=== PATIENT | female | born 2000 | race Caucasian/White ===

== ENCOUNTER 2024-01-15 17:51 | Emergency (ER) | payer OTHER, SELFPAY ==
[2024-01-15 18:02] VITALS: BP 128/75; PULSE 69; TEMP 37.5; O2SAT 96; BMI 21.0
[2024-01-15 19:11] VITALS: BP 125/77; PULSE 64; TEMP 36.8; O2SAT 98
--- NOTE | 2024-01-15 19:29 | ED.GENADUL1 ---
HPI HPI - General Adult General Chief complaint: Headache Stated complaint: HEADACHE, ABDOMINAL PAIN Time Seen by Provider: 01/15/24 19:17 Source: patient Mode of arrival: walk-in History of Present Illness HPI narrative: This 23-year-old female with a history of migraine headaches presents for evaluation of a migraine headache for the past 2 to 3 days associated with nausea and photophobia. She states she has taken Tylenol, ibuprofen and Excedrin Migraine without relief. She is not on any migraine prophylaxis. Her last migraine before this one was last week. She has a global throbbing headache. She denies any thunderclap presentation of the headache. She does not have any fever skin rash or neck pain. She also complains of upper abdominal pain that she states comes and goes. She is not currently experiencing it. She states that happens mostly when she is lying down or when she wakes up in the morning. She has not had any vomiting or diarrhea. She also states that time she has pain underneath her right shoulder blade. She has no chest pain or dizziness. She has no lower extremity pain or swelling. She doubts the possibility of but is not sure. Related Data Allergies Allergy/AdvReac Type Severity Reaction Status Date / Time No Known Drug Allergies Allergy Verified 01/15/24 18:05 Opioid HPI Opioid Management Most Recent Opioid Data: Last JUN Pain Assessment 01/15/24 19:51 Review of Systems ROS Status of ROS 10 or more systems reviewed and unremarkable except as noted in history and below PFSH PFSH Social History Little interest or pleasure in doing things: not at all Feeling down, depressed, or hopeless: not at all Exam Narrative Exam Narrative: Vital signs and Nursing Notes reviewed: Patient is afebrile with a normal pulse, normal blood pressure, she is not hypoxic with pulse ox of 98% on room air General: Awake, alert, oriented, no acute distress, lying comfortably on the stretcher HEENT: Normocephalic atraumatic, mucous membranes are moist and pink, eyes are clear, normal conjunctiva, vision is grossly intact, posterior pharynx is normal in appearance. Neck: Supple, no meningeal signs Chest: Lungs are clear to auscultation with good air entry, there is no wheezing rhonchi or rales appreciated no accessory muscle use, patient is speaking in complete sentences-no chest wall tenderness to palpation CVS: Regular rate and rhythm S1-S2, no murmurs rubs or gallops, pulses are brisk and equal bilaterally ABD: Soft, nondistended, nontender, no rebound guarding or rigidity, bowel sounds are normal, no pulsatile masses appreciated, no reproducible tenderness in the abdomen Extremities: Moving all extremities, no lower extremity tenderness or swelling noted, negative Homans' sign, pulses are brisk and equal bilaterally Skin: Normal in appearance without rash,pallor, petechiae or purpura Neuro: No focal deficits Constitutional Vital Signs, click to edit/add: Last Vital Signs Temp 98.2 F 01/15/24 19:11 Pulse 64 01/15/24 19:11 Resp 16 01/15/24 19:11 BP 125/77 01/15/24 19:11 Pulse Ox 98 01/15/24 19:11 O2 Del Method Room Air 01/15/24 19:11 Course Vital Signs Vital signs: Vital Signs Temperature 99.5 F 01/15/24 18:02 Pulse Rate 69 01/15/24 18:02 Respiratory Rate 18 01/15/24 18:02 Blood Pressure 128/75 01/15/24 18:02 Pulse Oximetry 96 01/15/24 18:02 Oxygen Delivery Method Room Air 01/15/24 18:02 Temperature 98.2 F 01/15/24 19:11 Pulse Rate 64 01/15/24 19:11 Respiratory Rate 16 01/15/24 19:11 Blood Pressure 125/77 01/15/24 19:11 Pulse Oximetry 98 01/15/24 19:11 Oxygen Delivery Method Room Air 01/15/24 19:11 Medical Decision Making MDM Narrative Medical decision making narrative: This 23-year-old female with a history of migraine headaches presents for evaluation of a migraine headache upper abdominal pain and pain underneath her right shoulder blade for the past several days. She has not had a fever. This is a typical migraine for her associated with nausea but no vomiting. Her vital signs and physical exam were benign. She stated to me that she had taken Tylenol, ibuprofen and Excedrin Migraine for her migraine without relief. An IV was placed and she was medicated with IV fluids, Reglan, Benadryl and Toradol. Routine labs are reviewed. She has a normal white count and hemoglobin. Her urine is negative for infection, test was negative. Electrolytes, liver function tests and d dimer are normal. On reevaluation she had fallen asleep and is easily arousable and states she is feeling better. She will be discharged home with a prescription for Reglan, protonix and ibuprofen with referral to outpatient family medicine. Lab Data Labs: Lab Results 01/15/24 01/15/24 01/15/24 Range/Units 19:15 19:45 20:00 WBC 7.7 (4.0-11.0) 10^3/uL RBC 4.59 (4.20-5.40) 10^6/uL Hgb 14.9 (12.0-16.0) g/dL Hct 42.1 (36.0-48.0) % MCV 91.7 (81.0-99.0) fL MCH 32.5 (26.7-34.0) pg MCHC 35.4 H (29.9-35.2) g/dL RDW 12.0 (11.0-15.0) % Plt Count 264 (150-450) 10^3/uL MPV 10.5 (9.5-13.5) fL Neut % (Auto) 52.5 (43.0-75.0) % Lymph % (Auto) 36.0 (20.5-60.0) % [place] % (Auto) 8.3 (1.7-12.0) % Eos % (Auto) 2.3 (0.9-7.0) % Baso % (Auto) 0.6 (0.2-2.0) % Neut # (Auto) 4.1 (1.4-6.5) 10^3/uL Lymph # (Auto) 2.8 (1.2-3.8) 10^3/uL [place] # (Auto) 0.6 (0.3-0.8) 10^3/uL Eos # (Auto) 0.2 (0.0-0.7) 10^3/uL Baso # (Auto) 0.1 (0.0-0.1) 10^3/uL Abs Immat Gran (auto) 0.02 (0.00-0.03) 10^3/uL Imm/Tot Granulo (auto) 0.3 (0.0-0.5) % D-Dimer <0.19 (<=0.59) mg/L FEU Sodium 138 (136-145) mmol/L Potassium 3.7 (3.5-5.1) mmol/L Chloride 105 (98-107) mmol/L Carbon Dioxide 22.6 (21.0-32.0) mmol/L Anion Gap 14.1 BUN 10.0 (7.0-18.0) mg/dL Creatinine 0.84 (0.55-1.02) mg/dL Est GFR ( Amer) >60 (>=60 mL/min/1.73m^2) Est GFR (Non-Af Amer) >60 (>=60 mL/min/1.73m^2) BUN/Creatinine Ratio 11.9 Glucose 102 (74-106) mg/dL Calcium 8.9 (8.5-10.1) mg/dL Total Bilirubin 0.4 (0.2-1.0) mg/dL AST 12 L (15-37) U/L ALT 15 (14-59) U/L Alkaline Phosphatase 45 L (46-116) U/L Total Protein 6.8 (6.4-8.2) g/dL Albumin 3.7 (3.4-5.0) g/dL Globulin 3.1 g/dL Albumin/Globulin Ratio 1.2 Lipase 50.0 (16.0-77.0) U/L Urine Color Lt. yellow (YELLOW) Urine Clarity Clear (CLEAR) Urine pH 7.0 (5.0-9.0) Ur Specific [place] 1.010 (1.005-1.025) Urine Protein Negative (NEG/TRACE) mg/dL Urine Glucose (UA) Negative (NEGATIVE) mg/dL Urine Ketones Negative (NEGATIVE) mg/dL Urine Occult Blood Moderate A (NEGATIVE) Urine Nitrite Negative (NEGATIVE) Urine Bilirubin Negative (NEGATIVE) Urine Urobilinogen 0.2 (0.2-1.0) EU/dL Ur Leukocyte Esterase Moderate A (NEGATIVE) Urine RBC 5-10 A (0-2) #/HPF Urine WBC 5-10 A (NONE SEEN) #/HPF Ur Squamous Epith Cells Many A (NONE/RARE) #/LPF Urine Crystals None seen (None Seen) #/HPF Urine Bacteria Small A (NONE SEEN) #/HPF Urine Casts None seen (NONE SEEN) #/LPF Urine Mucus None seen (NONE SEEN) Ur Culture Indicated? Yes Urine HCG, Qual Negative (NEGATIVE) Discharge Plan Discharge Chief Complaint: Headache Clinical Impression: Migraine, Gastritis Patient Disposition: Home, Self-Care Time of Disposition Decision: 20:50 Condition: Good Print Language: [place] Instructions: Gastritis (ED), Migraine Headache (ED) Referrals: Physician,Non-Staff, MD [Primary Care Provider] - 1 week
[2024-01-15 19:41] LABS: Bilirubin Urine NEGATIVE (NEGATIVE); Blood Urine MODERATE (NEGATIVE); Clarity Urine CLEAR (CLEAR); Color Urine LT. YELLOW (YELLOW); Glucose Urine UA NEGATIVE (NEGATIVE); Ketones Urine NEGATIVE (NEGATIVE); Leukocyte Esterase Urine MODERATE (NEGATIVE); Nitrite Urine NEGATIVE (NEGATIVE); Protein Urine NEGATIVE (NEG/TRACE); Urobilinogen Urine 0.2 EU/dL (0.2-1.0)
[2024-01-15 19:49] LABS: HCG Qualitative Urine* NEGATIVE (NEGATIVE); Internal Control Within Normal Limits
[2024-01-15] MEDS: KETOROLAC TROMETHAMINE 30 MG/ML VIAL IVP (19:51)
[2024-01-15] MEDS: DIPHENHYDRAMINE HCL 50 MG/ML VIAL 12.5 MG IV (19:52)
[2024-01-15] MEDS: METHYLPREDNISOLONE SOD SUCC PF 125 MG/2 ML VIAL IVP (19:52)
[2024-01-15] MEDS: METOCLOPRAMIDE HCL 10 MG/2 ML VIAL IVP (19:52)
[2024-01-15] MEDS: 0.9 % SODIUM CHLORIDE 1,000 ML 1000 ML IV (19:52)
[2024-01-15 19:57] LABS: Basophils Absolute Auto 0.1 10^3/uL (0.0-0.1); Basophils Percent Auto 0.6 % (0.2-2.0); Eosinophils Absolute Auto 0.2 10^3/uL (0.0-0.7); Eosinophils Percent Auto 2.3 % (0.9-7.0); Hematocrit 42.1 % (36.0-48.0); Hemoglobin 14.9 g/dL (12.0-16.0); Immature Granulocytes Abs Auto 0.02 10^3/uL (0.00-0.03); Immature Granulocytes Pct Auto 0.3 % (0.0-0.5); Lymphocytes Absolute Auto 2.8 10^3/uL (1.2-3.8); Mean Corpuscular HGB Conc 35.4 g/dL (29.9-35.2); Mean Corpuscular Hemoglobin 32.5 pg (26.7-34.0); Mean Corpuscular Volume 91.7 fL (81.0-99.0); Mean Platelet Volume 10.5 fL (9.5-13.5); Monocytes Absolute Auto 0.6 10^3/uL (0.3-0.8); Monocytes Percent Auto 8.3 % (1.7-12.0); Neutrophils Absolute Auto 4.1 10^3/uL (1.4-6.5); Neutrophils Percent Auto 52.5 % (43.0-75.0); Platelet Count 264 10^3/uL (150-450); Red Blood Count 4.59 10^6/uL (4.20-5.40); White Blood Count 7.7 10^3/uL (4.0-11.0)
[2024-01-15 20:26] LABS: Cast Seen? NONE SEEN #/LPF (NONE SEEN); Crystals Seen? None Seen #/HPF (None Seen); Mucus Urine NONE SEEN (NONE SEEN); Squamous Epithelial Cell Urine MANY #/LPF (NONE/RARE)
[2024-01-15 20:27] LABS: Bacteria Urine SMALL #/HPF (NONE SEEN); Urine Culture Indicated YES
[2024-01-15 20:32] LABS: Alanine Aminotransferase 15 U/L (14-59); Albumin Globulin Ratio 1.2; Albumin Level 3.7 g/dL (3.4-5.0); Alkaline Phosphatase 45 U/L (46-116); Anion Gap 14.1; Aspartate Amino Transferase 12 U/L (15-37); BUN Creatinine Ratio 11.9; Bilirubin Total 0.4 mg/dL (0.2-1.0); Calcium 8.9 mg/dL (8.5-10.1); Carbon Dioxide 22.6 mmol/L (21.0-32.0); Chloride 105 mmol/L (98-107); Estimated GFR (African America >60 (>=60 mL/min/1.73m^2); Estimated GFR (Non-African Ame >60 (>=60 mL/min/1.73m^2); Globulin 3.1 g/dL; Glucose 102 mg/dL (74-106); Potassium 3.7 mmol/L (3.5-5.1); Sodium 138 mmol/L (136-145); Total Protein 6.8 g/dL (6.4-8.2)
[2024-01-15 20:34] LABS: D Dimer <0.19 mg/L FEU (<=0.59)
== END 2024-01-15 21:00 | disposition home or self-care (01) ==
PROVIDERS: Emergency Provider Emergency Medicine
DX: K29.70 Gastritis, unspecified, without bleeding (principal); G43.909 Migraine, unspecified, not intractable, without status migrainosus
CPT/HCPCS: 36415; 80053; 81001; 83690; 84703; 85025; 85378; 87086; 87811; 87880; 96361; 96374; 96375; 99285; J1200; J1885; J2765; J2919

== ENCOUNTER 2024-01-21 11:39 | Emergency (ER) | payer OTHER, SELFPAY ==
[2024-01-21 11:42] VITALS: BP 125/82; PULSE 83; TEMP 36.6; O2SAT 100; BMI 21.0
--- OUTSIDE RECORDS SUMMARY | 2024-01-21 12:00 | XMS_ITS | CCD ---
Author Organization [facility] Care Team Providers Care Burr Bench Operator Name Role Phone DR NAYELI STYLES Admitting Unavailable JENSEN, DR TYLER Attending Unavailable ZARATE, DR JOHN Greco Primary Care Unavailable JENSEN, DR TYLER Admitting Unavailable JENSEN, DR TYLER Attending Unavailable ZARATE, DR JOHN Greco Primary Care Unavailable JENSEN, DR TYLER Consulting Unavailable ZARATEJOHN Primary Care Unavailable SHAWN MAC Attending Unavailable Problems Problem Classification Problem Date Documented Date Episodic/Chronic Headache; including migraine (1 source) Headache; including migraine Onset: 06-16-2023 Immunizations and screening for infectious disease (1 source) Encounter for screening for human papillomavirus (HPV); Translations: [ENC SCREENING HUMAN PAPILLOMAVIRUS] Onset: 10-12-2021 Episodic Influenza (1 source) Influenza Onset: 06-16-2023 Other screening for suspected conditions (not mental disorders or infectious disease) (4 sources) Encounter for screening for malignant neoplasm of cervix; Translations: [ENC SCREENING MALIG NEOPLASM CERV] Onset: 10-09-2021 Episodic Viral infection (1 source) Viral infection, unspecified; Translations: [Viral infection, unspecified] Onset: 06-16-2023 Episodic Results Test Name Value Interpretation Reference Range Facil ity CBC AND AUTO DIFFon 06-16-19 24 ABSOLUTE BASOPHIL 0.1 X10E9/L [facility] 0.0-0.2 [facility] Comment on above: Performed By: #### C JAMMIE BHAGAT, 3040-3 #### [facility] ([id number]) [address] [place] [address], [place] [address] ABSOLUTE NEUTROPHIL 2.8 X10E9/L Normal 1.5-6.6 [facility] Comment on above: Performed By: #### C JAMMIE BHAGAT, 3040-3 #### [facility] ([id number]) [address] [place] [address] 96161 Basophils/100 WBC (Bld) 1.2 % Normal [facility] Comment on above: Performed By: #### C LEOLA CMP, 3039-3 #### [facility] ([id number]) [address] [place] [address] 34066 Eosinophils (Bld) [#/Vol] 0.1 10*3/uL Normal 0.0-0.4 [facility] Comment on above: Performed By: #### Simon BHAGAT CMP, 3039-06 #### [facility] ([id number]) [address] [place] [address] 39999 Eosinophils/100 WBC (Bld) 1.2 % Normal [facility] Comment on above: Performed By: #### Simon BHAGAT [facility], 3039-06 #### [facility] ([id number]) [address] [place] [address] 62112 Erythrocyte distribution width (RBC) [Ratio] 12.9 % Normal 11.5-15.0 [facility] Comment on above: Performed By: #### Simon BHAGAT CMP, 3039-06 #### [facility] ([id number]) [address] [place] [address] 73003 Hematocrit (Bld) [Volume fraction] 42.1 % Normal 35-47 [facility] Comment on above: Performed By: #### Simon BHAGAT CMP, 3 #### [facility] ([id number]) [address] [place] [address] 70355 Hemoglobin (Bld) [Mass/Vol] 15.1 g/dL Normal 11.7-15.5 [facility] Comment on above: Performed By: #### Simon BHAGAT CMP, 3039-3 #### [facility] ([id number]) [address] [place] [address] 16289 Lymphocytes (Bld) [#/Vol] 2.7 10*3/uL Normal 1.0-3.5 [facility] Comment on above: Performed By: #### Simon BHAGAT CMP, 3039-3 #### [facility] ([id number]) [address] [place] [address] 78000 Lymphocytes/100 WBC (Bld) 43.6 % Normal [facility] Comment on above: Performed By: #### Simon BHAGAT CMP, 3039-06 #### [facility] ([id number]) [address] [place] [address] 73703 MCH (RBC) [Entitic mass] 32.6 pg Normal 27-34 [facility] Comment on above: Performed By: #### Simon BHAGAT CMP, 3039-06 #### [facility] ([id number]) [address] [place] [address] 53143 MCHC (RBC) [Mass/Vol] 35.8 g/dL Normal 32-36 [facility] Comment on above: Performed By: #### Simon BHAGAT CMP, 3039-06 #### [facility] ([id number]) [address] [place] [address] 29051 MCV (RBC) [Entitic vol] 91 fL Normal 80-100 [facility] Comment on above: Performed By: #### Simon BHAGAT CMP, 3039-06 #### [facility] ([id number]) [address] [place] [address] 09886 Monocytes (Bld) [#/Vol] 0.6 10*3/uL Normal 0-0.9 [facility] Comment on above: Performed By: #### Simon BHAGAT CMP, 3 #### [facility] ([id number]) [address] [place] [address] 93541 Monocytes/100 WBC (Bld) 9.0 % Normal [facility] Comment on above: Performed By: #### Simon BHAGAT, CMP, 3040-3 #### [facility] ([id number]) [address] [place] [address] 46927 Neutrophils/100 WBC (Bld) 45.0 % Normal [facility] Comment on above: Performed By: #### Simon BHAGAT CMP, 3039-3 #### [facility] ([id number]) [address] [place] [address] 55281 Platelet mean volume (Bld) [Entitic vol] 9.1 fL Normal 7-12 [facility] Comment on above: Performed By: #### Simon BHAGAT CMP, 3039-3 #### [facility] ([id number]) [address] [place] [address] 90737 Platelets (Bld) [#/Vol] 268 10*3/uL Normal 150-450 [facility] Comment on above: Performed By: #### Simon BHAGAT, CMP, 3039-3 #### [facility] ([id number]) [address] [place] [address] 03248 RBC COUNT 4.61 X10E12/L Normal 3.80-5.20 [facility] Comment on above: Performed By: #### Simon BHAGAT, CMP, 3039-3 #### [facility] ([id number]) [address] [place] [address] 80669 WBC (Bld) [#/Vol] 6.2 10*3/uL Normal 4.0-11.0 [facility] Comment on above: Performed By: #### Simon BHAGAT, CMP, 3039-3 #### [facility] ([id number]) [address] [place] [address] 75111 COMPREHENSIVE METABOLIC PANE Bjorn 06-16-2023 Albumin [Mass/Vol] 4.8 g/dL Normal 3.2-5.3 [facility] Comment on above: Performed By: #### C BCA, CMP, 3039-3 #### [facility] ([id number]) [address] [place] [address] 96399 ALP [Catalytic activity/Vol] 41 U/L Normal 39-130 [facility] Comment on above: Performed By: #### C BCA, CMP, 3039-3 #### [facility] ([id number]) [address] [place] [address] 70652 ALT [Catalytic activity/Vol] 11 U/L Normal 0-31 [facility] Comment on above: Performed By: #### C BCA, CMP, 3 #### [facility] ([id number]) [address] [place] [address] 10282 Anion gap [Moles/Vol] 8 mmol/L Normal 5-15 [facility] Comment on above: Performed By: #### C BCA, CMP, 3 #### [facility] ([id number]) [address] [place] [address] 20857 AST [Catalytic activity/Vol] 18 U/L Normal 0-41 [facility] Comment on above: Performed By: #### C BCA, CMP, 3039-3 #### [facility] ([id number]) [address] [place] [address] 24619 Bilirubin [Mass/Vol] 1.1 mg/dL Normal 0.3-1.2 [facility] Comment on above: Performed By: #### C BCA, CMP, 3039-3 #### [facility] ([id number]) [address] [place] [address] 62696 Calcium [Mass/Vol] 9.2 mg/dL Normal 8.5-10.5 [facility] Comment on above: Performed By: #### C BCA, CMP, 3039-3 #### [facility] ([id number]) [address] [place] [address] 70143 Chloride [Moles/Vol] 108 mmol/L Normal 98-109 [facility] Comment on above: Performed By: #### C JAMMIE BHAGAT, 3040-3 #### [facility] ([id number]) [address] [place] [address] 88847 CO2 [Moles/Vol] 22 mmol/L Normal 22-32 [facility] Comment on above: Performed By: #### C LEOLA [facility], 3039-3 #### [facility] ([id number]) [address] [place] [address] 12537 Creatinine [Mass/Vol] 0.86 mg/dL Normal 0.40-1.00 [facility] Comment on above: Result Comment: METH OD TRACEABLE TO IDMS STANDARD Performed By: #### C JAMMIE BHAGAT, 3 #### [facility] ([id number]) [address] [place] [address] 65694 eGFR (CKD-EPI) NON-RACE DEPENDENT >90 Normal >59 [facility] Comment on above: Result Comment: Reported eGFR is based on the CKD-EPI 2020 equation that does not use a race coefficient. Performed By: #### C JAMMIE BHAGAT, 3039-3 #### [facility] ([id number]) [address] [place] [address] 43439 Glucose [Mass/Vol] 87 mg/dL Normal 65-99 [facility] Comment on above: Performed By: #### C JAMMIE BHAGAT, 3039-3 #### [facility] ([id number]) [address] [place] [address] 79759 Potassium [Moles/Vol] 3.4 mmol/L Low 3.5-5.0 [facility] Comment on above: Performed By: #### C JAMMIE BHAGAT, 3039-3 #### [facility] ([id number]) [address] [place] [address] 24831 Protein [Mass/Vol] 7.5 g/dL Normal 6.0-8.0 [facility] Comment on above: Performed By: #### C JAMMIE BHAGAT, 3040-3 #### [facility] ([id number]) [address] [place] [address] 62361 Sodium [Moles/Vol] 138 mmol/L Normal 134-146 [facility] Comment on above: Performed By: #### C LEOLA [facility], 3040-3 #### [facility] ([id number]) [address] [place] [address] 57916 Urea nitrogen [Mass/Vol] 9 mg/dL Normal 5-23 [facility] Comment on above: Performed By: #### C JAMMIE BHAGAT, 3040-3 #### [facility] ([id number]) [address] [place] [address] 86672 HCG ( test) Ql (U)o n 06-16-2023 Beta HCG ( test) Ql (U) Negative Normal NEG [facility] Comment on above: Performed By: #### 2 106-3 #### [facility] ([id number]) [address] [place] [address] 01464 LIPASEon 06-16-2023 Lipase [Catalytic activity/Vol] 38 U/L Normal 17-40 [facility] Comment on above: Performed By: #### C [facility]OLA [facility], 3040-3 #### [facility] ([id number]) [address] [place] [address] 66544 SARS/FLU A+B/RSV by NAAT/Mol ecularon 06-16-2023 SARS/FLU A+B/RSV by NAAT/Molecular FLU A PCR Negative (qualifier value) FLU B PCR Negative (qualifier value) RSV by PCR Negative (qualifier value) SARS CoV 2 Not detected (qualifier value) NOTE The Xpert Xpress SARS-CoV-2/Flu/RSV Plus test is a rapid, multiplexed real-time RT-PCR test intended for the simultaneous qualitative detection and differentiation of SARS-CoV-2, influenza A, influenza B and respiratory syncytial virus (RSV) viral RNA from individuals suspected of respiratory viral infection consistent with COVID-19 by their healthcare provider. This test has not been validated in asymptomatic patients. The Xpert Xpress SARS-CoV-2 test is intended for use by qualified and trained operators who are performing tests using either Cytosorbents or rag & bone systems and is limited to laboratories that meet the CLIA requirements to perform high and moderate complexity tests. The Xpert Xpress SARS-CoV-2/Flu/RSV Plus is only for use under the Food and Drug Administration's Emergency Use Authorization. Results are for the simultaneous detection and differentiation of SARS-CoV-2, influenza A, influenza B and RSV nucleic acids in clinical specimens. SARS-CoV-2, influenza A, influenza B and RSV RNA identified by this test are generally detectable in upper respiratory samples during the acute phase of infection. Positive results are indicative of the presence of the identified virus, but do not rule out bacterial infection or co-infection with other pathogens not detected by this test. Clinical correlation with patient history and other diagnostic information is necessary to determine patient infection status. The agent detected may not be the definite cause of disease. Negative results do not preclude SARS-CoV-2, influenza A, influenza B and RSV infection and should not be used as the sole basis for treatment or other patient management decisions. Negative results must be combined with clinical observations, patient history and epidemiological information. An Invalid result may occur with specimen-associated inhibition unable to be resolved with specimen repeat. Fact Sheet for Healthcare Providers: https://www.fda.gov/me carline/617331/download Fact Sheet for Patients: https://www.fda.gov/me carline/815558/download Normal [facility] Comment on above: Performed By: #### C OVFLR #### [facility] ([id number]) [address] [place] [address] 37738 ZELALEM Langford 2023 BILIRUBIN DMITRIY Small Abnormal NEG [facility] Comment on above: Performed By: #### N UM #### [facility] ([id number]) [address] [place], [place] [address], [place] [address] BLOOD/HGB DMITRIY Negative Normal NEG [facility] Comment on above: Performed By: #### N UM #### [facility] ([id number]) [address] [place] [address] 46525 GLUCOSE DMITRIY Negative Normal NEG [facility] Comment on above: Performed By: #### N UM #### [facility] ([id number]) [address] [place] [address] [place] [address] KETONES DMITRIY Trace Abnormal NEG [facility] Comment on above: Performed By: #### N UM #### [facility] ([id number]) [address] [place] [address] 69509 LEUKOCYTE ESTERASE DMITRIY Negative Normal NEG [facility] Comment on above: Performed By: #### N UM #### [facility] ([id number]) [address] [place] [address] [place] [address] NITRITE DMITRIY Negative Normal NEG [facility] Comment on above: Performed By: #### N UM #### [facility] ([id number]) [address] [place] [address] 38683 PH DMITRIY 7.0 Normal 5.0-8.5 [facility] Comment on above: Performed By: #### N UM #### [facility] ([id number]) [address] [place] [address] [place] [address] PROTEIN DMITRIY Negative Normal NEG [facility] Comment on above: Performed By: #### N UM #### [facility] ([id number]) [address] [place] [address] 06767 SPECIFIC GRAVITY DMITRIY 1.025 Normal 1.003-1.035 [facility] Comment on above: Performed By: #### N UM #### [facility] ([id number]) [address] [place] [address] 45562 UROBILINOGEN DMITRIY 0.2 eu/dL Normal <1.1 [facility] Comment on above: Performed By: #### N UM #### [facility] ([id number]) [address] [place] [address], [place] [address] PAP ACOG PANEL 2: 21 to 29on 10-12-2021 . . Normal [facility] Comment on above: Performed By: #### 4 [id number] #### [facility] [address] [place] [address] Dr. Jose Conrad Age Gdln ACOG Testing - [facility] Comment on above: Performed By: #### 4 [id number] #### [facility] [address] [place] [address] Dr. Jose Conrad DIAGNOSIS: Comment [facility] Comment on above: Result Comment: NEGA TIVE FOR INTRAEPITHELIAL LESION OR MALIGNANCY. Performed By: #### 4 [id number] #### [facility] [address] [place] [address] Dr. Jose Conrad Methodology: Comment [facility] Comment on above: Result Comment: This liquid based ThinPrep(R) pap test was screened with the use of an image guided system. Performed By: #### 4 [id number] #### [facility] [address] [place] [address] Dr. Jose Conrad Note: Comment [facility] Comment on above: Result Comment: The Pap smear is a screening test designed to aid in the detection of premalignant and malignant conditions of the uterine cervix. It is not a diagnostic procedure and should not be used as the sole means of detecting cervical cancer. Both false-positive and false-negative reports do occur. . Performed By: #### 4 [id number] #### [facility] [address] [place] [address] Dr. Jose Conrad Performed by: Comment Normal [facility] Comment on above: Result Comment: Kevin Weiner, Stockroom Coordinator (ASCP) Performed By: #### 4 [id number] #### [facility] [address] [place] [address] Dr. Jose Conrad Reflex Criteria: Comment Normal [facility] Comment on above: Result Comment: The HPV DNA reflex criteria were not met with this specimen result therefore, no HPV testing was performed. . Performed By: #### 4 [id number] #### [facility] [address] [address] [address] Jose Conrad Specimen adequacy: Comment Normal [facility] Comment on above: Result Comment: Sati sfactory for evaluation. Endocervical and/or squamous metaplastic cells (endocervical component) are present. Performed By: #### 4 [id number] #### [facility] [address] [place], [place] [address] Dr. Jose Conrad Encounters Encounter Date Encounter Type Care Provider Facility Start: 06-16-2023 End: 06-16-2023 Emergency department patient visit JOHN A ZARATE [facility] Start: 11-19-[address] NAYELI STYLES Facility :[facility] Start: 10-09-2021 End: 10-09-[address] NAYELI STYLES Facility:[facility] Payers Date Payer Category Payer Medicaid [id number] 2000 Unknown [id number] [id number] [id number] 2000 Unknown [id number] 2.16.84 [id number] 2000 Unknown [id number] [id number] [id number] 1959 Self-pay 1959 Unknown [id number] Summary Purpose Family History No Family History Records FoundNo Family History Records Found Advance Directives No Advanced Directives Records FoundNo Advanced Directives Records Found Additional Source Comments INFORMATION SOURCE (unrecogn ized section and content) DATE CREATED AUTHOR 11/19/2021 [facility] DATE CREATED AUTHOR AUTHOR'S MICAH GARCIA 06/17/2023 [facility] FOR RECORDS PERTAINING TO PATIENTS WHO ARE OR HAVE BEEN ENROLLED IN A CHEMICAL DEPENDENCY/SUBSTANCEABUSE PROGRAM, SOME INFORMATION MAY BE OMITTED. This clinical summary was aggregated from multiple sources. Caution should be exercised in using it in the provision of clinical care. This summary normalizes information from multiple sources, and as a consequence, information in this document may materially change the coding, format and clinical context of patient data. In addition, data may be omitted in some cases. CLINICAL DECISIONS SHOULD BE BASED ON THE PRIMARY CLINICAL RECORDS. [facility]. provides no warranty or guarantee of the accuracy or completeness of information in this document.
--- NOTE | 2024-01-21 18:28 | ED.GENADUL1 ---
HPI HPI - General Adult General Chief complaint: Abdominal Pain Stated complaint: GENERAL WEAKNESS/ABDOMINAL PAIN Time Seen by Provider: 01/21/24 11:54 Source: patient Mode of arrival: walk-in Limitations: no limitations History of Present Illness HPI narrative: Patient left without being seen. Related Data Home Medications ?Medication ?Instructions ?Recorded ?Confirmed ibuprofen 600 mg tablet (IBU) 600 mg PO Q8H 01/21/24 01/21/24 metoclopramide HCl 10 mg tablet 10 mg PO Q6H 01/21/24 01/21/24 pantoprazole 40 mg tablet,delayed 40 mg PO DAILY 01/21/24 01/21/24 release Allergies Allergy/AdvReac Type Severity Reaction Status Date / Time No Known Drug Allergies Allergy Verified 01/21/24 11:46 Opioid HPI Opioid Management Most Recent Opioid Data: Last MAR Pain Assessment 01/15/24 19:51 PFSH PFSH Social History Little interest or pleasure in doing things: not at all Feeling down, depressed, or hopeless: not at all Exam Constitutional Vital Signs, click to edit/add: Last Vital Signs Temp 98 F 01/21/24 11:42 Pulse 83 01/21/24 11:42 Resp 20 01/21/24 11:42 BP 125/82 01/21/24 11:42 Pulse Ox 100 01/21/24 11:42 O2 Del Method Room Air 01/21/24 11:42 Course Vital Signs Vital signs: Vital Signs Temperature 98 F 01/21/24 11:42 Pulse Rate 83 01/21/24 11:42 Respiratory Rate 20 01/21/24 11:42 Blood Pressure 125/82 01/21/24 11:42 Pulse Oximetry 100 01/21/24 11:42 Oxygen Delivery Method Room Air 01/21/24 11:42 Temperature 98 F 01/21/24 11:42 Pulse Rate 83 01/21/24 11:42 Respiratory Rate 20 01/21/24 11:42 Blood Pressure 125/82 01/21/24 11:42 Pulse Oximetry 100 01/21/24 11:42 Oxygen Delivery Method Room Air 01/21/24 11:42 Discharge Plan Discharge Patient Disposition: Left Without Being Seen Discharge Date/Time: 01/21/24 13:17
== END 2024-01-21 13:17 | disposition left against medical advice (07) ==
PROVIDERS: Emergency Provider Student in an Organized Health Care Education/Training Program
DX: Z53.21 Procedure and treatment not carried out due to patient leaving prior to being seen by health care provider (principal)